=== PATIENT | female | born 1965 | race African-American/Black ===

== ENCOUNTER 2018-12-14 20:07 | Emergency (ER) | payer OTHER ==
[~2018-12-14] VITALS: Ht 177.8 cm; Wt 94.3 kg
[2018-12-14 20:11] VITALS: Ht 177.8 cm; Wt 94.3 kg
[2018-12-14 21:27] VITALS: BP 145/72
== END 2018-12-14 21:27 | disposition home or self-care (01) ==
LOC: ED 20:07
DX: M25.512 Pain in left shoulder (principal); I10 Essential (primary) hypertension; E11.9 Type 2 diabetes mellitus without complications; M79.7 Fibromyalgia; Z88.1 Allergy status to other antibiotic agents; Z88.5 Allergy status to narcotic agent
CPT/HCPCS: J1885

== ENCOUNTER 2019-04-25 19:54 | Emergency (ER) | payer OTHER ==
[~2019-04-25] VITALS: Ht 175.3 cm; Wt 96.2 kg
[2019-04-25 20:00] VITALS: Ht 175.3 cm; Wt 96.2 kg
[2019-04-25 21:21] LABS: microscopic required? YES; urine erythrocyte TRACE (NEGATIVE)
[2019-04-25 21:22] LABS: BASOPHIL % 1.6 % (0-2); PLATELET COUNT 158 x10^3mcL (130-400); RED CELL DISTRIBUTION WIDTH 13.4 % (11.5-14.5)
[2019-04-25 21:34] LABS: AMPHETAMINE QUAL UR NONE DETECTED (See below)
[2019-04-25 21:34] LABS: CALCIUM 9.2 mg/dL (8.5-10.1); CARBON DIOXIDE 30.6 mmol/L (21-32); CHLORIDE SERUM 99 mmol/L (98-107); CREATININE SERUM 0.9 mg/dL (0.6-1.0); GFR1 > 60 mL/min; GLUCOSE SERUM 166 mg/dL (74-106); POTASSIUM SERUM 3.6 mmol/L (3.5-5.1); SODIUM SERUM 139 mmol/L (136-145)
[2019-04-25 21:38] LABS: ALBUMIN 3.6 g/dL (3.4-5.0); ALKALINE PHOSPHATASE 102 U/L (46-116); ALT/SGPT 22 U/L (14-59); AST/SGOT 8 U/L (15-37); BILIRUBIN TOTAL 0.62 mg/dL (0.20-1.00); HDL CHOLESTEROL 37 mg/dL (40-60); MAGNESIUM 1.7 mg/dL (1.8-2.4)
[2019-04-25 21:39] LABS: CHOLESTEROL 121 mg/dL (<200); TOTAL PROTEIN, SERUM 8.4 g/dL (6.4-8.2)
[2019-04-25 22:43] VITALS: BP 128/81
== END 2019-04-25 22:48 | disposition home or self-care (01) ==
LOC: ED 19:54
PROVIDERS: Emergency Medicine
DX: M32.9 Systemic lupus erythematosus, unspecified (principal); I10 Essential (primary) hypertension; E11.9 Type 2 diabetes mellitus without complications; F12.20 Cannabis dependence, uncomplicated; Z88.1 Allergy status to other antibiotic agents; Z88.5 Allergy status to narcotic agent
CPT/HCPCS: 82962; 87804; J1100; J1885; Q0092